=== PATIENT | female | born 1950 | race African-American/Black ===

== ENCOUNTER 2021-10-14 05:55 | Inpatient (IN) | payer MEDICARE, MEDICAID ==
[~2021-10-14] VITALS: Ht 157.5 cm; Wt 54.0 kg
[~2021-10-14 05:55] MED LIST: CLON0.2T PO; CLON2TAB PO; VICODIN
[2021-10-14] MEDS ORDERED: ACETAMINOPHEN 325MG TABLET PO STA (06:32)
[2021-10-14] MEDS ORDERED: CEFTRIAXONE 1 G PREMIX 50 ML IV ONE (07:15)
[2021-10-14 07:24] LABS: BASOPHILS % 0.3 % (0.0-2.0); EOSINOPHILS % 0.5 % (0.0-5.0); HEMOGLOBIN. 9.1 g/dL (12.0-16.0); LYMPHOCYTES % 15.2 % (20.0-50.0); MEAN CORPUSCULAR HEMOGLOBIN 20.7 pg (28.0-32.0); MEAN CORPUSCULAR VOLUME 65.5 fL (81.0-99.0); MEAN PLATELET VOLUME 6.5 fl (7.4-10.4); PLATELET 364 x1000/uL (130-400); RED BLOOD CELL COUNT 4.42 mill/uL (4.2-5.4); RED CELL DISTRIBUTION WIDTH 23.9 % (11.6-14.6)
[2021-10-14 07:32] LABS: CHLORIDE 100 mEq/L (98-107)
[2021-10-14 07:48] LABS: PLATELET ESTIMATE NORMAL
[2021-10-14] MEDS: VANCOMYCIN 1G PREMIX 200 ML IV SCH (08:21)
[2021-10-14] MEDS ORDERED: METRONIDAZOLE 500 MG PREMIX 100 ML IV SCH (09:00)
[2021-10-14] MEDS ORDERED: POLYETHYLENE GLYCOL 3350 (17GM) 1 DOSE PACK PO SCH (09:00)
[2021-10-14 10:01] LABS: CLARITY URINE CLEAR (CLEAR); COLOR URINE YELLOW (YELLOW); KETONES URINE NEGATIVE (NEGATIVE); LEUKOCYTE ESTERASE URINE 3+ (NEGATIVE); NITRITE URINE NEGATIVE (NEGATIVE); OCCULT BLOOD URINE 1+ (NEGATIVE); PH URINE 8.5 (4.5-8.0); PROTEIN URINE TRACE (NEGATIVE); SPECIFIC GRAVITY URINE 1.012 (1.005-1.030)
[2021-10-14] MEDS ORDERED: SODIUM CHLORIDE 0.9% 1,000 ML IV ONE ×2 (11:30→13:45)
[2021-10-14] MEDS ORDERED: SODIUM CHLORIDE 0.9% 1,000 ML IV SCH (11:30)
[2021-10-14] MEDS ORDERED: LEVOFLOXACIN 500MG PREMIX 100 ML IV SCH (15:00)
[2021-10-14 16:20] VITALS: BP 150/52
[2021-10-14] MEDS: ACETAMINOPHEN 325MG TABLET PO PRN ×2 (17:59→22:21)
[2021-10-14] MEDS ORDERED: LACTULOSE 20G/30ML UDC PO NR (18:30)
[2021-10-14 20:00] VITALS: BP 162/62
[2021-10-14] MEDS: ONDANSETRON HCL 4MG/2ML INJ IV PRN (20:03)
[2021-10-14] MEDS: METRONIDAZOLE 500MG TABLET PO SCH (20:59)
[2021-10-14] MEDS: DOCUSATE SODIUM 250MG CAPSULE PO SCH (21:20)
[2021-10-15 01:00] VITALS: BP 179/69
[2021-10-15] MEDS: ONDANSETRON HCL 4MG/2ML INJ IV PRN ×2 (02:07→07:15)
[2021-10-15] MEDS: CLONIDINE 0.1MG TABLET PO PRN ×2 (02:08→07:16)
[2021-10-15 04:00] VITALS: BP 179/63
[2021-10-15] MEDS: ACETAMINOPHEN 325MG TABLET PO PRN (07:15)
[2021-10-15] MEDS: VANCOMYCIN 1G PREMIX 200 ML IV SCH (07:15)
[2021-10-15 08:00] VITALS: BP 166/56
[2021-10-15] MEDS: DOCUSATE SODIUM 250MG CAPSULE PO SCH (09:19)
[2021-10-15] MEDS: METRONIDAZOLE 500MG TABLET PO SCH (09:19)
[2021-10-15 12:00] VITALS: BP 117/60
[2021-10-15] MEDS ORDERED: SORBITOL 70% SOLN 30ML PO SCH (15:00)
[2021-10-15] MEDS: BISACODYL 10MG SUPP PR SCH (15:00)
[2021-10-15 16:00] VITALS: BP 166/54
[2021-10-15 16:35] LABS: BASOPHILS % 0.2 % (0.0-2.0); EOSINOPHILS % 0.4 % (0.0-5.0); HEMATOCRIT. 31.8 % (36.0-48.0); HEMOGLOBIN. 10.3 g/dL (12.0-16.0); LYMPHOCYTES % 12.9 % (20.0-50.0); MEAN CORPUSCULAR HEMOGLOBIN 21.1 pg (28.0-32.0); MEAN CORPUSCULAR VOLUME 65.3 fL (81.0-99.0); MEAN PLATELET VOLUME 6.7 fl (7.4-10.4); MONOCYTES % 7.6 % (2.0-8.0); NEUTROPHILS % 78.9 % (40.0-76.0); PLATELET 445 x1000/uL (130-400); RED BLOOD CELL COUNT 4.87 mill/uL (4.2-5.4); RED CELL DISTRIBUTION WIDTH 24.8 % (11.6-14.6)
[2021-10-15 16:58] LABS: CHLORIDE 100 mEq/L (98-107)
[2021-10-15 17:07] LABS: TOTAL IRON BINDING CAPACITY 213 ug/dL (250-450)
[2021-10-15 17:15] LABS: FERRITIN 75 ng/mL (10-291)
[2021-10-15 17:26] LABS: HEPATITIS B SURFACE ANTIGEN NEGATIVE
[2021-10-15 17:31] LABS: VITAMIN B12 SERUM 1302 pg/mL (211-911)
[2021-10-15] MEDS: METOCLOPRAMIDE HCL 10MG/2ML VIAL IV SCH (18:00)
[2021-10-15 20:00] VITALS: BP 162/60
[2021-10-15] MEDS: PANTOPRAZOLE SODIUM 40 MG/VIAL IV SCH (21:38)
[2021-10-16] VITALS: BP 175/52
[2021-10-16 04:00] VITALS: BP 155/52
[2021-10-16] MEDS: METOCLOPRAMIDE HCL 10MG/2ML VIAL IV SCH ×4 (07:17→23:59)
[2021-10-16 08:00] VITALS: BP 139/40
[2021-10-16] MEDS: DOCUSATE SODIUM 250MG CAPSULE PO SCH (09:00)
[2021-10-16] MEDS: BISACODYL 10MG SUPP PR SCH (09:00)
[2021-10-16 09:31] LABS: BASOPHILS % 0.4 % (0.0-2.0); EOSINOPHILS % 0.3 % (0.0-5.0); HEMATOCRIT. 31.3 % (36.0-48.0); LYMPHOCYTES % 13.1 % (20.0-50.0); MEAN CORPUSCULAR HEMOGLOBIN 20.8 pg (28.0-32.0); MEAN CORPUSCULAR VOLUME 65.1 fL (81.0-99.0); MEAN PLATELET VOLUME 6.6 fl (7.4-10.4); MONOCYTES % 6.1 % (2.0-8.0); NEUTROPHILS % 80.1 % (40.0-76.0); PLATELET 540 x1000/uL (130-400); RED BLOOD CELL COUNT 4.81 mill/uL (4.2-5.4); RED CELL DISTRIBUTION WIDTH 24.7 % (11.6-14.6)
[2021-10-16 09:46] LABS: CHLORIDE 100 mEq/L (98-107)
[2021-10-16 12:00] VITALS: BP 146/40
[2021-10-16] MEDS: ACETAMINOPHEN 325MG TABLET PO PRN (12:00)
[2021-10-16] MEDS: PANTOPRAZOLE SODIUM 40 MG/VIAL IV SCH ×2 (12:01→21:56)
[2021-10-16 16:00] VITALS: BP 157/62
[2021-10-16] MEDS: LEVOFLOXACIN 500MG PREMIX 100 ML IV SCH (18:03)
[2021-10-16 20:00] VITALS: BP 152/68
[2021-10-17] VITALS: BP 149/54
[2021-10-17] MEDS: ACETAMINOPHEN 325MG TABLET PO PRN ×2 (00:28→09:20)
[2021-10-17 04:00] VITALS: BP 155/55
[2021-10-17] MEDS: METOCLOPRAMIDE HCL 10MG/2ML VIAL IV SCH ×4 (05:13→23:45)
[2021-10-17] MEDS ORDERED: LIDOCAINE HCL 1% 10 MG/ML 10ML VIAL INJ NR (06:00)
[2021-10-17] MEDS ORDERED: NALOXONE HCL 0.4MG/ML VIAL IV PRN (07:45)
[2021-10-17 08:00] VITALS: BP 158/53
[2021-10-17] MEDS: PANTOPRAZOLE SODIUM 40 MG/VIAL IV SCH ×2 (09:19→20:16)
[2021-10-17] MEDS: DOCUSATE SODIUM 250MG CAPSULE PO SCH (09:19)
[2021-10-17] MEDS: BISACODYL 10MG SUPP PR SCH (09:20)
[2021-10-17 12:00] VITALS: BP 148/50
[2021-10-17] MEDS ORDERED: BISACODYL 10MG SUPP PR NR (13:45)
[2021-10-17] MEDS: HYDROCODONE/ACETAMINOPHEN 5/325MG TABLET PO PRN ×2 (14:15→23:03)
[2021-10-17 16:00] VITALS: BP 148/49
[2021-10-17] MEDS ORDERED: MORPHINE SULFATE 2 MG/ML CPJ (NOT FOR IM USE) IV NR (16:00)
[2021-10-17] MEDS: LEVOFLOXACIN 500MG PREMIX 100 ML IV SCH (18:46)
[2021-10-17 20:00] VITALS: BP 158/55
[2021-10-18] VITALS: BP 151/51
[2021-10-18 04:00] VITALS: BP 131/83
[2021-10-18] MEDS: ACETAMINOPHEN 325MG TABLET PO PRN ×2 (04:25→19:08)
[2021-10-18] MEDS: METOCLOPRAMIDE HCL 10MG/2ML VIAL IV SCH ×3 (05:49→17:49)
[2021-10-18 06:52] LABS: BASOPHILS % 0.5 % (0.0-2.0); EOSINOPHILS % 1.3 % (0.0-5.0); HEMATOCRIT. 29.7 % (36.0-48.0); HEMOGLOBIN. 9.6 g/dL (12.0-16.0); LYMPHOCYTES % 18.3 % (20.0-50.0); MEAN CORPUSCULAR HEMOGLOBIN 21.3 pg (28.0-32.0); MEAN CORPUSCULAR VOLUME 66.1 fL (81.0-99.0); MEAN PLATELET VOLUME 8.3 fl (7.4-10.4); MONOCYTES % 9.8 % (2.0-8.0); NEUTROPHILS % 70.1 % (40.0-76.0); PLATELET 459 x1000/uL (130-400); RED CELL DISTRIBUTION WIDTH 24.8 % (11.6-14.6)
[2021-10-18 08:00] VITALS: BP 145/60
[2021-10-18] MEDS: DOCUSATE SODIUM 250MG CAPSULE PO SCH (08:31)
[2021-10-18] MEDS: PANTOPRAZOLE SODIUM 40 MG/VIAL IV SCH ×2 (08:31→20:21)
[2021-10-18] MEDS: BISACODYL 10MG SUPP PR SCH (08:32)
[2021-10-18 09:26] LABS: CHLORIDE 103 mEq/L (98-107)
[2021-10-18 12:00] VITALS: BP_SYST 135; BP_SYST 139; BP_DIAS 62; BP_DIAS 75
[2021-10-18] MEDS: LEVOFLOXACIN 250MG TABLET PO SCH (15:20)
[2021-10-18 16:00] VITALS: BP 119/67
[2021-10-18] MEDS: HYDROCODONE/ACETAMINOPHEN 5/325MG TABLET PO PRN (16:24)
[2021-10-18] MEDS ORDERED: METOCLOPRAMIDE 10MG/10 ML UDC PO PRN (19:15)
[2021-10-18 20:00] VITALS: BP 154/54
[2021-10-19] VITALS: BP 156/54
[2021-10-19 04:00] VITALS: BP 171/54
[2021-10-19] MEDS: HYDROCODONE/ACETAMINOPHEN 5/325MG TABLET PO PRN ×3 (06:28→19:44)
[2021-10-19 08:00] VITALS: BP 142/61
[2021-10-19 08:09] LABS: BASOPHILS % 0.4 % (0.0-2.0); EOSINOPHILS % 1.5 % (0.0-5.0); HEMATOCRIT. 32.4 % (36.0-48.0); HEMOGLOBIN. 10.2 g/dL (12.0-16.0); LYMPHOCYTES % 22.8 % (20.0-50.0); MEAN CORPUSCULAR HEMOGLOBIN 21.5 pg (28.0-32.0); MEAN CORPUSCULAR VOLUME 68.1 fL (81.0-99.0); MEAN PLATELET VOLUME 6.6 fl (7.4-10.4); MONOCYTES % 7.1 % (2.0-8.0); NEUTROPHILS % 68.2 % (40.0-76.0); PLATELET 510 x1000/uL (130-400); RED BLOOD CELL COUNT 4.75 mill/uL (4.2-5.4); RED CELL DISTRIBUTION WIDTH 25.8 % (11.6-14.6)
[2021-10-19] MEDS: BISACODYL 10MG SUPP PR SCH (08:09)
[2021-10-19] MEDS: DOCUSATE SODIUM 250MG CAPSULE PO SCH (08:09)
[2021-10-19] MEDS: PANTOPRAZOLE SODIUM 40 MG/VIAL IV SCH ×2 (08:10→20:23)
[2021-10-19 08:31] LABS: CHLORIDE 102 mEq/L (98-107)
[2021-10-19] MEDS: AMLODIPINE 5MG TABLET PO SCH (10:34)
[2021-10-19] MEDS: LEVOFLOXACIN 250MG TABLET PO SCH (10:34)
[2021-10-19 12:00] VITALS: BP 152/56
[2021-10-19 16:00] VITALS: BP 145/56
[2021-10-19 20:00] VITALS: BP 149/51
[2021-10-20] VITALS: BP 149/51
[2021-10-20 04:00] VITALS: BP 159/55
[2021-10-20 08:00] VITALS: BP 135/75
[2021-10-20] MEDS: BISACODYL 10MG SUPP PR SCH (09:00)
[2021-10-20] MEDS: PANTOPRAZOLE SODIUM 40 MG/VIAL IV SCH ×2 (09:46→20:20)
[2021-10-20] MEDS: DOCUSATE SODIUM 250MG CAPSULE PO SCH (09:46)
[2021-10-20] MEDS: AMLODIPINE 5MG TABLET PO SCH (09:48)
[2021-10-20] MEDS: LEVOFLOXACIN 250MG TABLET PO SCH (11:23)
[2021-10-20 12:00] VITALS: BP 137/62
[2021-10-20 16:00] VITALS: BP 118/59
[2021-10-20 16:10] LABS: BASOPHILS % 0.4 % (0.0-2.0); EOSINOPHILS % 1.8 % (0.0-5.0); HEMATOCRIT. 29.4 % (36.0-48.0); HEMOGLOBIN. 9.5 g/dL (12.0-16.0); LYMPHOCYTES % 17.6 % (20.0-50.0); MEAN CORPUSCULAR HEMOGLOBIN 21.6 pg (28.0-32.0); MEAN CORPUSCULAR VOLUME 66.6 fL (81.0-99.0); MEAN PLATELET VOLUME 6.4 fl (7.4-10.4); MONOCYTES % 9.7 % (2.0-8.0); NEUTROPHILS % 70.5 % (40.0-76.0); PLATELET 451 x1000/uL (130-400); RED BLOOD CELL COUNT 4.41 mill/uL (4.2-5.4); RED CELL DISTRIBUTION WIDTH 26.1 % (11.6-14.6)
[2021-10-20 16:18] LABS: CHLORIDE 100 mEq/L (98-107)
[2021-10-20] MEDS: ACETAMINOPHEN 325MG TABLET PO PRN (19:04)
[2021-10-20 20:00] VITALS: BP 156/63
[2021-10-20] MEDS: HYDROCODONE/ACETAMINOPHEN 5/325MG TABLET PO PRN (21:00)
[2021-10-21] VITALS (7 sets, daily range): BP systolic 127–151; BP diastolic 43–59
[2021-10-21] MEDS: ACETAMINOPHEN 325MG TABLET PO PRN ×3 (01:10→14:40)
[2021-10-21] MEDS: PANTOPRAZOLE SODIUM 40 MG/VIAL IV SCH ×2 (08:49→20:33)
[2021-10-21] MEDS: AMLODIPINE 5MG TABLET PO SCH (08:51)
[2021-10-21] MEDS: DOCUSATE SODIUM 250MG CAPSULE PO SCH (09:00)
[2021-10-21] MEDS: BISACODYL 10MG SUPP PR SCH (09:00)
[2021-10-21] MEDS: HYDROCODONE/ACETAMINOPHEN 5/325MG TABLET PO PRN (20:40)
[2021-10-22] VITALS: BP 136/55
[2021-10-22] MEDS: HYDROCODONE/ACETAMINOPHEN 5/325MG TABLET PO PRN (02:06)
[2021-10-22 04:00] VITALS: BP 137/55
[2021-10-22 08:00] VITALS: BP 139/52
[2021-10-22] MEDS: BISACODYL 10MG SUPP PR SCH (09:00)
[2021-10-22] MEDS: AMLODIPINE 5MG TABLET PO SCH (09:58)
[2021-10-22] MEDS: ACETAMINOPHEN 325MG TABLET PO PRN (09:58)
[2021-10-22] MEDS: DOCUSATE SODIUM 250MG CAPSULE PO SCH (09:58)
[2021-10-22] MEDS: PANTOPRAZOLE SODIUM 40 MG/VIAL IV SCH ×2 (10:00→21:50)
[2021-10-22 12:00] VITALS: BP 131/73
[2021-10-22 16:00] VITALS: BP 130/55
[2021-10-22 20:00] VITALS: BP 140/53
[2021-10-23] VITALS: BP 106/52
[2021-10-23 04:00] VITALS: BP 138/46
[2021-10-23 08:00] VITALS: BP 140/47
[2021-10-23] MEDS: DOCUSATE SODIUM 250MG CAPSULE PO SCH (08:43)
[2021-10-23] MEDS: BISACODYL 10MG SUPP PR SCH (08:43)
[2021-10-23] MEDS: AMLODIPINE 5MG TABLET PO SCH (08:43)
[2021-10-23] MEDS: PANTOPRAZOLE SODIUM 40 MG/VIAL IV SCH ×2 (08:43→21:07)
[2021-10-23 12:00] VITALS: BP 144/36
[2021-10-23] MEDS: ACETAMINOPHEN 325MG TABLET PO PRN (14:19)
[2021-10-23 16:00] VITALS: BP 127/54
[2021-10-23 20:00] VITALS: BP 146/54
[2021-10-24] VITALS: BP 127/41
[2021-10-24] MEDS: ACETAMINOPHEN 325MG TABLET PO PRN ×3 (01:02→22:48)
[2021-10-24 04:00] VITALS: BP 131/38
[2021-10-24 08:00] VITALS: BP 130/37
[2021-10-24] MEDS: PANTOPRAZOLE SODIUM 40 MG/VIAL IV SCH ×2 (08:46→21:00)
[2021-10-24] MEDS: BISACODYL 10MG SUPP PR SCH (08:46)
[2021-10-24] MEDS: DOCUSATE SODIUM 250MG CAPSULE PO SCH (08:46)
[2021-10-24] MEDS: AMLODIPINE 5MG TABLET PO SCH (08:54)
[2021-10-24 12:00] VITALS: BP 111/32
[2021-10-24 16:00] VITALS: BP 144/54
[2021-10-24 20:00] VITALS: BP 124/55
[2021-10-25] VITALS: BP 122/52
[2021-10-25 04:00] VITALS: BP 128/54
[2021-10-25 08:00] VITALS: BP 130/50
[2021-10-25] MEDS: ACETAMINOPHEN 325MG TABLET PO PRN ×3 (09:25→23:29)
[2021-10-25] MEDS: BISACODYL 10MG SUPP PR SCH ×2 (09:26→09:35)
[2021-10-25] MEDS: AMLODIPINE 5MG TABLET PO SCH (09:26)
[2021-10-25] MEDS: DOCUSATE SODIUM 250MG CAPSULE PO SCH (09:26)
[2021-10-25] MEDS: PANTOPRAZOLE SODIUM 40 MG/VIAL IV SCH ×2 (09:26→21:00)
[2021-10-25 12:00] VITALS: BP 126/52
[2021-10-25 16:00] VITALS: BP 118/51
[2021-10-25 20:00] VITALS: BP 122/46
[2021-10-26] VITALS: BP 120/52
[2021-10-26 04:00] VITALS: BP 128/60
[2021-10-26 08:00] VITALS: BP 120/50
[2021-10-26 09:14] LABS: BASOPHILS % 0.3 % (0.0-2.0); EOSINOPHILS % 1.8 % (0.0-5.0); HEMATOCRIT. 32.6 % (36.0-48.0); HEMOGLOBIN. 10.4 g/dL (12.0-16.0); LYMPHOCYTES % 17.4 % (20.0-50.0); MEAN CORPUSCULAR HEMOGLOBIN 21.8 pg (28.0-32.0); MEAN PLATELET VOLUME 6.5 fl (7.4-10.4); MONOCYTES % 8.7 % (2.0-8.0); NEUTROPHILS % 71.8 % (40.0-76.0); PLATELET 591 x1000/uL (130-400); RED BLOOD CELL COUNT 4.79 mill/uL (4.2-5.4); RED CELL DISTRIBUTION WIDTH 24.5 % (11.6-14.6)
[2021-10-26] MEDS: DOCUSATE SODIUM 250MG CAPSULE PO SCH (09:19)
[2021-10-26] MEDS: PANTOPRAZOLE SODIUM 40 MG/VIAL IV SCH ×2 (09:19→21:53)
[2021-10-26] MEDS: AMLODIPINE 5MG TABLET PO SCH (09:19)
[2021-10-26 09:34] LABS: CHLORIDE 95 mEq/L (98-107)
[2021-10-26 12:00] VITALS: BP 121/44
[2021-10-26 12:11] LABS: PLATELET ESTIMATE INCREASED
[2021-10-26] MEDS: SODIUM CHLORIDE 0.9% 1,000 ML IV SCH (12:48)
[2021-10-26 16:00] VITALS: BP 121/40
[2021-10-26] MEDS: ACETAMINOPHEN 325MG TABLET PO PRN (16:51)
[2021-10-26 20:00] VITALS: BP 130/85
[2021-10-27] VITALS: BP 140/47
[2021-10-27 04:00] VITALS: BP 134/46
[2021-10-27] MEDS: SODIUM CHLORIDE 0.9% 1,000 ML IV SCH (06:45)
[2021-10-27 08:00] VITALS: BP 126/44
[2021-10-27 08:04] LABS: CHLORIDE 100 mEq/L (98-107)
[2021-10-27] MEDS: AMLODIPINE 5MG TABLET PO SCH (08:22)
[2021-10-27] MEDS: PANTOPRAZOLE SODIUM 40 MG/VIAL IV SCH ×2 (08:22→22:05)
[2021-10-27] MEDS: DOCUSATE SODIUM 250MG CAPSULE PO SCH (08:22)
[2021-10-27] MEDS: BISACODYL 10MG SUPP PR SCH (08:22)
[2021-10-27 12:00] VITALS: BP 130/61
[2021-10-27] MEDS: ACETAMINOPHEN 325MG TABLET PO PRN ×3 (14:35→22:40)
[2021-10-27 16:00] VITALS: BP 125/50
[2021-10-27 20:00] VITALS: BP_SYST 114; BP_SYST 132; BP_DIAS 54; BP_DIAS 61
[2021-10-28] VITALS: BP 132/47
[2021-10-28 04:00] VITALS: BP 113/47
[2021-10-28] MEDS: SODIUM CHLORIDE 0.9% 1,000 ML IV SCH ×2 (07:03→15:49)
[2021-10-28 08:00] VITALS: BP 130/41
[2021-10-28] MEDS: AMLODIPINE 5MG TABLET PO SCH (09:00)
[2021-10-28] MEDS: PANTOPRAZOLE SODIUM 40 MG/VIAL IV SCH ×2 (11:10→21:00)
[2021-10-28] MEDS: BISACODYL 10MG SUPP PR SCH (11:46)
[2021-10-28] MEDS: DOCUSATE SODIUM 250MG CAPSULE PO SCH (11:46)
[2021-10-28 12:00] VITALS: BP 133/49
[2021-10-28 16:00] VITALS: BP 148/86
[2021-10-28 20:34] LABS: BASOPHILS % 0.7 % (0.0-2.0); EOSINOPHILS % 1.2 % (0.0-5.0); HEMATOCRIT. 30.5 % (36.0-48.0); HEMOGLOBIN. 9.4 g/dL (12.0-16.0); LYMPHOCYTES % 19.4 % (20.0-50.0); MEAN CORPUSCULAR HEMOGLOBIN 21.8 pg (28.0-32.0); MEAN CORPUSCULAR VOLUME 70.7 fL (81.0-99.0); MEAN PLATELET VOLUME 6.7 fl (7.4-10.4); MONOCYTES % 7.9 % (2.0-8.0); NEUTROPHILS % 70.8 % (40.0-76.0); PLATELET 488 x1000/uL (130-400); RED BLOOD CELL COUNT 4.31 mill/uL (4.2-5.4)
[2021-10-28 20:45] LABS: INR 1.1; PROTHROMBIN TIME 11.9 sec (9.6-11.0)
[2021-10-28 20:52] LABS: CHLORIDE 104 mEq/L (98-107)
[2021-10-28] MEDS ORDERED: FENTANYL CITRATE/PF 50MCG/ML 2ML VIAL ONE (21:11)
[2021-10-28] MEDS ORDERED: PROPOFOL 200MG/20ML VIAL IV ONE (21:12)
[2021-10-28] MEDS ORDERED: POLYMYXIN B SULFATE 500000 UNITS/VIAL ONE (21:14)
[2021-10-28] MEDS ORDERED: MIDAZOLAM HCL 2 MG/2 ML VIAL ONE (21:20)
[2021-10-28] MEDS ORDERED: HYDROMORPHONE HCL/PF 2MG/ML CPJ IV PRN (21:30)
[2021-10-28] MEDS ORDERED: ONDANSETRON HCL 4MG/2ML INJ IV PRN (21:30)
[2021-10-28] MEDS ORDERED: MEPERIDINE HCL/PF 25MG/ML CPJ IV PRN (21:30)
[2021-10-28] MEDS ORDERED: LABETALOL 5MG/ML SYR 20 MG/4 ML SYRINGE IV PRN (21:30)
[2021-10-29] VITALS (7 sets, daily range): BP systolic 111–130; BP diastolic 42–59
[2021-10-29] MEDS: SODIUM CHLORIDE 0.9% 1,000 ML IV SCH ×2 (05:09→18:29)
[2021-10-29] MEDS: PANTOPRAZOLE SODIUM 40 MG/VIAL IV SCH ×2 (09:00→21:00)
[2021-10-29] MEDS: AMLODIPINE 5MG TABLET PO SCH (09:40)
[2021-10-29] MEDS: DOCUSATE SODIUM 250MG CAPSULE PO SCH (09:40)
[2021-10-29] MEDS: BISACODYL 10MG SUPP PR SCH (09:41)
[2021-10-29 11:42] LABS: BASOPHILS % 0.2 % (0.0-2.0); EOSINOPHILS % 0.1 % (0.0-5.0); HEMOGLOBIN. 9.5 g/dL (12.0-16.0); LYMPHOCYTES % 21.3 % (20.0-50.0); MEAN CORPUSCULAR VOLUME 69.3 fL (81.0-99.0); MEAN PLATELET VOLUME 6.6 fl (7.4-10.4); MONOCYTES % 5.4 % (2.0-8.0); PLATELET 569 x1000/uL (130-400); RED BLOOD CELL COUNT 4.33 mill/uL (4.2-5.4); RED CELL DISTRIBUTION WIDTH 24.2 % (11.6-14.6)
[2021-10-29 12:20] LABS: CHLORIDE 104 mEq/L (98-107)
[2021-10-29] MEDS: HYDROCODONE/ACETAMINOPHEN 5/325MG TABLET PO PRN (15:59)
[2021-10-29] MEDS ORDERED: PANT40TA51 MT (19:44)
[2021-10-29] MEDS ORDERED: AMLO5TAB88 PO (19:44)
[2021-10-30] VITALS (7 sets, daily range): BP systolic 125–136; BP diastolic 40–47
[2021-10-30] MEDS: HYDROCODONE/ACETAMINOPHEN 5/325MG TABLET PO PRN ×2 (00:29→05:55)
[2021-10-30] MEDS: SODIUM CHLORIDE 0.9% 1,000 ML IV SCH (07:49)
[2021-10-30] MEDS: PANTOPRAZOLE SODIUM 40 MG/VIAL IV SCH (09:00)
[2021-10-30] MEDS: BISACODYL 10MG SUPP PR SCH (09:00)
[2021-10-30] MEDS: DOCUSATE SODIUM 250MG CAPSULE PO SCH (09:44)
[2021-10-30] MEDS: AMLODIPINE 5MG TABLET PO SCH (09:45)
[2021-10-30 12:50] LABS: BASOPHILS % 1.1 % (0.0-2.0); EOSINOPHILS % 3.5 % (0.0-5.0); HEMATOCRIT. 29.9 % (36.0-48.0); HEMOGLOBIN. 9.3 g/dL (12.0-16.0); LYMPHOCYTES % 29.4 % (20.0-50.0); MEAN CORPUSCULAR HEMOGLOBIN 21.6 pg (28.0-32.0); MEAN CORPUSCULAR VOLUME 69.6 fL (81.0-99.0); MEAN PLATELET VOLUME 6.4 fl (7.4-10.4); MONOCYTES % 9.6 % (2.0-8.0); NEUTROPHILS % 56.4 % (40.0-76.0); PLATELET 572 x1000/uL (130-400); RED BLOOD CELL COUNT 4.29 mill/uL (4.2-5.4); RED CELL DISTRIBUTION WIDTH 24.4 % (11.6-14.6)
[2021-10-30 12:59] LABS: CHLORIDE 108 mEq/L (98-107)
== END 2021-10-30 16:51 | disposition hospice, home (50) | DRG 364 ==
LOC: ER 06:13 → 6EST 12:51 → EDBEDREQ 12:56 → 6EST 10-17 04:14 → MICUSO 10-28 03:45 → 6EST 10-28 03:47
PROVIDERS: ADMIT Internal Medicine; ATTEND Internal Medicine
PROC: 0J980ZZ Drainage of Abdomen Subcutaneous Tissue and Fascia, Open Approach (ICD-10-PCS; principal; 2021-10-17)
PROC: 0JBL0ZZ Excision of Right Upper Leg Subcutaneous Tissue and Fascia, Open Approach (ICD-10-PCS; 2021-10-28)
PROC: 0JBM0ZZ Excision of Left Upper Leg Subcutaneous Tissue and Fascia, Open Approach (ICD-10-PCS; 2021-10-28)
DX: L02.211 Cutaneous abscess of abdominal wall (principal); E43 Unspecified severe protein-calorie malnutrition; R18.8 Other ascites; E87.1 Hypo-osmolality and hyponatremia; R16.2 Hepatomegaly with splenomegaly, not elsewhere classified; K52.9 Noninfective gastroenteritis and colitis, unspecified; L02.415 Cutaneous abscess of right lower limb; L02.416 Cutaneous abscess of left lower limb; K76.0 Fatty (change of) liver, not elsewhere classified; A59.9 Trichomoniasis, unspecified; D64.9 Anemia, unspecified; B19.20 Unspecified viral hepatitis C without hepatic coma; F11.90 Opioid use, unspecified, uncomplicated; N39.0 Urinary tract infection, site not specified; K56.41 Fecal impaction; B35.1 Tinea unguium; D50.9 Iron deficiency anemia, unspecified; R22.2 Localized swelling, mass and lump, trunk; I10 Essential (primary) hypertension; N20.0 Calculus of kidney; Z20.822 Contact with and (suspected) exposure to COVID-19; Z90.49 Acquired absence of other specified parts of digestive tract; Z88.0 Allergy status to penicillin; Z79.899 Other long term (current) drug therapy; Z95.0 Presence of cardiac pacemaker; Z71.51 Drug abuse counseling and surveillance of drug abuser
CPT/HCPCS: 36415; 73070; 74018; 74176; 76700; 80048; 80053; 81003; 82607; 82728; 82746; 83540; 83550; 83605; 84145; 84295; 85025; 85044; 86705; 86709; 86803; 87070; 87075; 87077; 87186; 87340; 87426; 88304; 93005; 93976; 97110; 97162; 97166; 97530; 97535; 99285; C1893; C9113; J0696; J1170; J1956; J2250; J2270; J2405; J2704; J2765; J3010; J3370; J3490; J7030; J7040

== ENCOUNTER 2024-03-04 08:59 | Inpatient (IN) | payer MEDICARE, MEDICAID ==
[~2024-03-04] VITALS: Ht 162.6 cm; Wt 79.0 kg
[2024-03-04] VITALS (21 sets, daily range): BP systolic 103–155; BP diastolic 42–58; PULSE 81–107; RESP 17–32; TEMP 36.55848–37.0852; O2SAT 87–100
[~2024-03-04 08:59] MED LIST changes: +AMLO5TAB88 PO; -CLON0.2T PO; -CLON2TAB PO; +LEVO-65 MT; +PANT40TA51 MT
[2024-03-04] MEDS: SODIUM CHLORIDE 0.9% 1,000 ML IV ONE (09:22)
[2024-03-04] MEDS: SODIUM CHLORIDE 0.9% 1000ML BAG (SEPSIS BOLUS) IV ONE (09:28)
[2024-03-04] MEDS: MEROPENEM 1G/100ML 100 ML IV ONE (09:28)
[2024-03-04 09:40] LABS: HEMATOCRIT. 39.7 % (36.0-48.0); HEMOGLOBIN. 12.8 g/dL (12.0-16.0); MEAN CORPUSCULAR HEMOGLOBIN 27.5 pg (28.0-32.0); MEAN CORPUSCULAR HGB CONC 32.2 g/dL (31.0-37.0); MEAN CORPUSCULAR VOLUME 85.3 fL (81.0-99.0); MEAN PLATELET VOLUME 9.4 fl (7.4-10.4); PLATELET 213 x1000/uL (130-400); RED BLOOD CELL COUNT 4.65 mill/uL (4.2-5.4); RED CELL DISTRIBUTION WIDTH 16.1 % (11.6-14.6); WHITE BLOOD COUNT 13.7 x1000/uL (4.5-11.0)
[2024-03-04 09:50] LABS: DIFFERENTIAL COMMENT 1
[2024-03-04 09:56] LABS: POTASSIUM 4.9 mEq/L (3.5-5.1)
[2024-03-04] MEDS: VANCOMYCIN 1G PREMIX 200 ML IV ONE (09:56)
[2024-03-04 09:58] LABS: CALCIUM 9.3 mg/dL (8.7-10.4)
[2024-03-04 09:59] LABS: LACTIC ACID 3.3 mmol/L (0.4-2.0)
[2024-03-04 10:02] LABS: CREATININE 1.2 mg/dL (0.6-1.0)
[2024-03-04 10:12] LABS: INR 1.1; PROTHROMBIN TIME 11.7 sec (9.6-11.0)
[2024-03-04] MEDS: ACETAMINOPHEN 650MG SUPP PR SCH (10:23)
[2024-03-04 10:50] LABS: ANISOCYTOSIS 1+; PLATELET ESTIMATE NORMAL
[2024-03-04 12:46] LABS: BG BASE EXCESS -2.4 mmol/L (-2.0-2.0); BG CARBOXYHEMOGLOBIN 0.8 % (0.5-1.5); BG FRACTION INSPIRED OXYGEN 21; BG HCO3 ACT 19.3 mmol/L (22.0-26.0); BG METHEMOGLOBIN 0.3 % (0.0-1.5); BG OXYGEN SATURATION 91.9 % (92.0-98.5); BG OXYHEMOGLOBIN 90.9 % (94.0-97.0); BG PCO2 25.5 mmHg (35.0-45.0); BG PH 7.497 (7.350-7.450); BG PO2 56.6 mmHg (75.0-100.0); BG SAMPLE SITE RIGHT RADIAL; BG TOTAL HEMOGLOBIN 12.8 g/dL (12.0-18.0); BG VENT MODE ROOM AIR
[2024-03-04] MEDS ORDERED: DOCUSATE SODIUM 100MG CAPSULE PO PRN (17:45)
[2024-03-04] MEDS ORDERED: MAGNESIUM/ALUMINUM HYDROXIDE/SIMETHICONE 30ML UDC PO PRN (17:45)
[2024-03-04] MEDS ORDERED: ACETAMINOPHEN 325MG TABLET PO PRN (17:45)
[2024-03-04] MEDS ORDERED: ONDANSETRON HCL 4MG/2ML INJ IV PRN (17:45)
[2024-03-04] MEDS ORDERED: NITROGLYCERIN 0.4MG TABLET SL SL PRN (17:45)
[2024-03-04] MEDS ORDERED: IPRATROPIUM/ALBUTEROL 0.5-3(2.5)MG/3ML NEB NEB PRN (17:45)
[2024-03-04] MEDS: NOREPINEPHRINE 8MG/250ML PMX 250 ML IV ONE (17:47)
[2024-03-04] MEDS ORDERED: KETOROLAC 15MG/ML VIAL IV PRN (18:00)
[2024-03-04] MEDS: LACTATED RINGERS 1,000 ML IV SCH (18:11)
[2024-03-04 18:20] LABS: IRON 64 ug/dL (50-170)
[2024-03-04 18:22] LABS: TOTAL IRON BINDING CAPACITY 255 ug/dl (250-425)
[2024-03-04 18:24] LABS: T4 FREE 1.04 ng/dL (0.89-1.76); VITAMIN B12 SERUM 1011 pg/mL (211-911)
[2024-03-04 18:25] LABS: FOLIC ACID (FOLATE) SERUM > 20.00 ng/mL (>5.38); THYROID STIMULATING HORMONE 2.45 uIU/mL (0.55-4.78)
[2024-03-04] MEDS: LACTATED RINGERS 1,600 ML IV NR (18:44)
[2024-03-04] MEDS ORDERED: ZOLPIDEM TARTRATE 5MG TABLET PO PRN (20:00)
[2024-03-04] MEDS: ASCORBIC ACID 500 MG TABLET PO SCH (21:00)
[2024-03-04] MEDS ORDERED: BLOOD SUGAR DIAGNOSTIC STRIP TEST SCH (21:00)
[2024-03-04 21:28] LABS: DIFFERENTIAL COMMENT 1; HEMATOCRIT. 31.6 % (36.0-48.0); MEAN CORPUSCULAR HEMOGLOBIN 27.8 pg (28.0-32.0); MEAN CORPUSCULAR HGB CONC 31.6 g/dL (31.0-37.0); MEAN PLATELET VOLUME 9.6 fl (7.4-10.4); PLATELET 81 x1000/uL (130-400); RED BLOOD CELL COUNT 3.59 mill/uL (4.2-5.4); RED CELL DISTRIBUTION WIDTH 16.7 % (11.6-14.6); WHITE BLOOD COUNT 16.9 x1000/uL (4.5-11.0)
[2024-03-04 21:33] LABS: POTASSIUM 4.4 mEq/L (3.5-5.1)
[2024-03-04 21:34] LABS: CALCIUM 8.1 mg/dL (8.7-10.4)
[2024-03-04 21:39] LABS: CREATININE 1.1 mg/dL (0.6-1.0)
[2024-03-04 21:41] LABS: LACTIC ACID 3.2 mmol/L (0.4-2.0)
[2024-03-04 22:20] LABS: CREATINE KINASE MB FRACTION 13.7 ng/mL (0.5-3.6)
[2024-03-04 22:21] LABS: CREATINE KINASE 1109 IU/L (34-145)
[2024-03-04 22:27] LABS: PLATELET ESTIMATE DECREASED
[2024-03-04 22:28] LABS: ANISOCYTOSIS 1+
[2024-03-04 22:31] LABS: TROPONIN I HIGH SENSITIVITY 741 ng/L (3.0-34)
[2024-03-04] MEDS: VANCOMYCIN 750MG PREMIX 150 ML IV SCH (22:39)
[2024-03-05] VITALS (86 sets, daily range): BP systolic 88–149; BP diastolic 25–126; PULSE 76–94; RESP 14–26; TEMP 36.33624–36.6696; O2SAT 94–100
[2024-03-05] MEDS: BLOOD SUGAR DIAGNOSTIC STRIP TEST SCH (00:16)
[2024-03-05] MEDS: MEROPENEM 1G/100ML 100 ML IV SCH (00:18)
[2024-03-05] MEDS: INSULIN LISPRO 100 UNITS/ML SUBCUT SCH (00:20)
[2024-03-05 05:50] LABS: BASOPHILS % 0.2 % (0.0-2.0); HEMATOCRIT. 34.3 % (36.0-48.0); HEMOGLOBIN. 10.7 g/dL (12.0-16.0); LYMPHOCYTES % 23.6 % (20.0-50.0); MEAN CORPUSCULAR HEMOGLOBIN 27.6 pg (28.0-32.0); MEAN CORPUSCULAR HGB CONC 31.1 g/dL (31.0-37.0); MEAN PLATELET VOLUME 9.9 fl (7.4-10.4); MONOCYTES % 10.9 % (2.0-8.0); NEUTROPHILS % 65.3 % (40.0-76.0); PLATELET 116 x1000/uL (130-400); RED BLOOD CELL COUNT 3.86 mill/uL (4.2-5.4); RED CELL DISTRIBUTION WIDTH 16.9 % (11.6-14.6); WHITE BLOOD COUNT 16.3 x1000/uL (4.5-11.0)
[2024-03-05 06:01] LABS: CHLORIDE 108 mEq/L (98-107); POTASSIUM 4.4 mEq/L (3.5-5.1); SODIUM 136 mEq/L (136-145)
[2024-03-05 06:03] LABS: CALCIUM 8.5 mg/dL (8.7-10.4); CARBON DIOXIDE 18 mEq/L (21-32)
[2024-03-05 06:05] LABS: CREATINE KINASE MB FRACTION 19.6 ng/mL (0.5-3.6)
[2024-03-05 06:08] LABS: CREATININE 0.9 mg/dL (0.6-1.0); GLUCOSE 134 mg/dL (70-105)
[2024-03-05 06:09] LABS: UREA NITROGEN BLOOD 33 mg/dL (9-23)
[2024-03-05 06:10] LABS: ALANINE AMINOTRANSFERASE 44 IU/L (10-49); ALBUMIN 3.3 g/dL (3.2-4.8); ASPARTATE AMINOTRANSFERASE 92 IU/L (<34)
[2024-03-05 06:11] LABS: BILIRUBIN TOTAL 0.5 mg/dL (0.1-1.0); PHOSPHORUS 3.9 mg/dL (2.5-4.9); PROTEIN TOTAL 6.8 g/dL (6.0-8.3)
[2024-03-05] MEDS ORDERED: LIDOCAINE HCL 1% 10 MG/ML 10ML VIAL ONE (08:10)
[2024-03-05] MEDS: ENOXAPARIN 40MG/0.4ML SYR SUBCUT SCH (09:00)
[2024-03-05] MEDS: PANTOPRAZOLE SODIUM 40 MG/VIAL IV SCH (09:12)
[2024-03-05] MEDS: ASPIRIN 81MG EC TABLET PO SCH (09:12)
[2024-03-05] MEDS: ZINC SULFATE 220 MG ( 50 ) CAPSULE PO SCH (09:12)
[2024-03-05] MEDS: NOREPINEPHRINE 8MG/250ML PMX 250 ML IV PRN (12:50)
[2024-03-05 16:45] LABS: CLARITY URINE CLEAR (CLEAR); COLOR URINE YELLOW (YELLOW); GLUCOSE URINE NEGATIVE (NEGATIVE); KETONES URINE TRACE (NEGATIVE); LEUKOCYTE ESTERASE URINE TRACE (NEGATIVE); NITRITE URINE NEGATIVE (NEGATIVE); OCCULT BLOOD URINE TRACE (NEGATIVE); PH URINE 6.5 (4.5-8.0); PROTEIN URINE 1+ (NEGATIVE); SPECIFIC GRAVITY URINE 1.021 (1.005-1.030)
[2024-03-05 16:58] LABS: BACTERIA URINE TRACE; SQUAMOUS EPITHELIAL CELL URINE FEW /lpf (RARE/1+)
[2024-03-05 16:59] LABS: *AMPHETAMINES SCREEN URINE NEGATIVE (NEGATIVE); *BARBITURATES SCREEN URINE NEGATIVE (NEGATIVE); *BENZODIAZEPINES SCREEN URINE NEGATIVE (NEGATIVE); *COCAINE SCREEN URINE NEGATIVE (NEGATIVE); METHADONE URINE SCREEN NEGATIVE (NEGATIVE)
[2024-03-05 17:00] LABS: CANNABINOID URINE SCREEN NEGATIVE (NEGATIVE); ECSTASY MDMA SCREEN URINE NEGATIVE (NEGATIVE); OPIATES URINE SCREEN NEGATIVE (NEGATIVE); PHENCYCLIDINE URINE SCREEN NEGATIVE (NEGATIVE)
[2024-03-05] MEDS: MEROPENEM 1G/100ML IV SCH (17:16)
[2024-03-05] MEDS: IPRATROPIUM/ALBUTEROL 0.5-3(2.5)MG/3ML NEB HHN SCH (20:35)
[2024-03-05] MEDS ORDERED: INSULIN LISPRO 100 UNITS/ML SUBCUT SCH (21:00)
[2024-03-05] MEDS: VANCOMYCIN 1G PREMIX 200 ML IV SCH (21:03)
[2024-03-05] MEDS ORDERED: IOHEXOL-300 100 ML BOTTLE ONE (23:51)
[2024-03-06] VITALS (50 sets, daily range): BP systolic 114–169; BP diastolic 50–144; PULSE 75–95; RESP 17–30; TEMP 36.50292–37.05852; O2SAT 86–100
[2024-03-06] MEDS: DEXTROSE 50% WATER 50ML SYRINGE IV PRN (00:12)
[2024-03-06] MEDS: ACETYLCYSTEINE 200MG/ML 20% VIAL 4ML INH SCH (01:42)
[2024-03-06 05:39] LABS: BASOPHILS % 0.3 % (0.0-2.0); EOSINOPHILS % 0.3 % (0.0-5.0); HEMOGLOBIN. 8.4 g/dL (12.0-16.0); MEAN CORPUSCULAR HEMOGLOBIN 27.8 pg (28.0-32.0); MEAN CORPUSCULAR HGB CONC 32.5 g/dL (31.0-37.0); MEAN CORPUSCULAR VOLUME 85.7 fL (81.0-99.0); MEAN PLATELET VOLUME 9.2 fl (7.4-10.4); MONOCYTES % 6.1 % (2.0-8.0); NEUTROPHILS % 72.3 % (40.0-76.0); PLATELET 100 x1000/uL (130-400); RED BLOOD CELL COUNT 3.03 mill/uL (4.2-5.4); RED CELL DISTRIBUTION WIDTH 16.2 % (11.6-14.6); WHITE BLOOD COUNT 8.3 x1000/uL (4.5-11.0)
[2024-03-06 05:45] LABS: CALCIUM 8.5 mg/dL (8.7-10.4); CARBON DIOXIDE 22 mEq/L (21-32); CHLORIDE 110 mEq/L (98-107); POTASSIUM 3.6 mEq/L (3.5-5.1); SODIUM 139 mEq/L (136-145)
[2024-03-06 05:51] LABS: CREATININE 0.6 mg/dL (0.6-1.0); GLUCOSE 87 mg/dL (70-105); TRIGLYCERIDE 77 mg/dL (0-150); UREA NITROGEN BLOOD 20 mg/dL (9-23)
[2024-03-06 05:52] LABS: LDL CHOLESTEROL 44 mg/dL (5-100)
[2024-03-06 05:53] LABS: CHOLESTEROL 79 mg/dL (<200); HDL CHOLESTEROL 22 mg/dL (>65)
[2024-03-06] MEDS: MEROPENEM 1G/100ML IV SCH (14:15)
[2024-03-06 18:06] LABS: HEMATOCRIT 26.6 % (36.0-48.0); HEMOGLOBIN 8.5 g/dL (12.0-16.0); MEAN CORPUSCULAR HEMOGLOBIN 27.3 pg (28.0-32.0); MEAN CORPUSCULAR HGB CONC 32.1 g/dL (31.0-37.0); PLATELET 107 x1000/uL (130-400); RED BLOOD CELL COUNT 3.13 mill/uL (4.2-5.4); RED CELL DISTRIBUTION WIDTH 16.6 % (11.6-14.6); WHITE BLOOD COUNT 9.4 x1000/uL (4.5-11.0)
[2024-03-06] MEDS: VANCOMYCIN 1.25GM PMX (XELLIA) 250 ML IV SCH (20:56)
[2024-03-06] MEDS: PANTOT AC/MIN OIL/PET HY-PHL OINT (AQUAPHOR) TOP SCH (21:00)
[2024-03-07] VITALS (59 sets, daily range): BP systolic 92–168; BP diastolic 33–133; PULSE 59–98; RESP 15–35; TEMP 36.55848–37.11408; O2SAT 92–100
[2024-03-07 06:18] LABS: BASOPHILS % 0.2 % (0.0-2.0); EOSINOPHILS % 0.7 % (0.0-5.0); HEMATOCRIT. 26.6 % (36.0-48.0); HEMOGLOBIN. 8.8 g/dL (12.0-16.0); LYMPHOCYTES % 16.7 % (20.0-50.0); MEAN CORPUSCULAR HEMOGLOBIN 28.1 pg (28.0-32.0); MEAN CORPUSCULAR HGB CONC 32.9 g/dL (31.0-37.0); MEAN CORPUSCULAR VOLUME 85.5 fL (81.0-99.0); MEAN PLATELET VOLUME 9.6 fl (7.4-10.4); MONOCYTES % 7.3 % (2.0-8.0); NEUTROPHILS % 75.1 % (40.0-76.0); PLATELET 141 x1000/uL (130-400); RED BLOOD CELL COUNT 3.11 mill/uL (4.2-5.4); RED CELL DISTRIBUTION WIDTH 15.8 % (11.6-14.6); WHITE BLOOD COUNT 9.3 x1000/uL (4.5-11.0)
[2024-03-07 06:19] LABS: CARBON DIOXIDE 22 mEq/L (21-32); CHLORIDE 109 mEq/L (98-107); POTASSIUM 3.5 mEq/L (3.5-5.1); SODIUM 138 mEq/L (136-145)
[2024-03-07 06:20] LABS: CALCIUM 8.8 mg/dL (8.7-10.4)
[2024-03-07 06:25] LABS: CREATININE 0.5 mg/dL (0.6-1.0); GLUCOSE 86 mg/dL (70-105); UREA NITROGEN BLOOD 11 mg/dL (9-23)
[2024-03-07 06:48] LABS: TROPONIN I HIGH SENSITIVITY 85 ng/L (3.0-34)
[2024-03-07] MEDS: DEXTROSE 5% WATER 1,000 ML IV SCH (08:46)
[2024-03-07] MEDS: GUAIFENESIN 600MG ER TABLET PO SCH (11:08)
[2024-03-07] MEDS: AMLODIPINE 5MG TABLET PO SCH (11:09)
[2024-03-07] MEDS: SODIUM CHLORIDE 3% FOR INH 4ML NEB INH NR (16:36)
[2024-03-07] MEDS: CLONIDINE 0.1MG TABLET PO PRN (16:36)
[2024-03-07] MEDS: CEFEPIME 2GM/100ML 100 ML IV SCH (20:41)
[2024-03-07] MEDS ORDERED: CEFEPIME 2GM IN DEXT 5% 100ML IV SCH (22:00)
[2024-03-08] VITALS (10 sets, daily range): BP systolic 113–146; BP diastolic 50–67; PULSE 57–81; RESP 16–22; TEMP 35.89176–37.16964; O2SAT 94–100
[2024-03-08 07:01] LABS: HEMATOCRIT 29.1 % (36.0-48.0); HEMOGLOBIN 9.5 g/dL (12.0-16.0); MEAN CORPUSCULAR HEMOGLOBIN 27.8 pg (28.0-32.0); MEAN CORPUSCULAR HGB CONC 32.5 g/dL (31.0-37.0); MEAN CORPUSCULAR VOLUME 85.6 fL (81.0-99.0); PLATELET 167 x1000/uL (130-400); RED BLOOD CELL COUNT 3.41 mill/uL (4.2-5.4); RED CELL DISTRIBUTION WIDTH 16.3 % (11.6-14.6); WHITE BLOOD COUNT 8.1 x1000/uL (4.5-11.0)
[2024-03-08 07:07] LABS: CARBON DIOXIDE 24 mEq/L (21-32); CHLORIDE 109 mEq/L (98-107); POTASSIUM 3.4 mEq/L (3.5-5.1); SODIUM 141 mEq/L (136-145)
[2024-03-08 07:08] LABS: CALCIUM 8.5 mg/dL (8.7-10.4)
[2024-03-08 07:11] LABS: CREATININE 0.5 mg/dL (0.6-1.0)
[2024-03-08 07:13] LABS: GLUCOSE 95 mg/dL (70-105); UREA NITROGEN BLOOD 5 mg/dL (9-23)
[2024-03-08 07:15] LABS: PHOSPHORUS 2.1 mg/dL (2.5-4.9)
[2024-03-08] MEDS: POTASSIUM-SODIUM PHOSPHATE POWDER PACKET PO SCH (08:52)
[2024-03-08] MEDS: METRONIDAZOLE 500 MG PREMIX 100 ML IV SCH (16:17)
[2024-03-09] VITALS (10 sets, daily range): BP systolic 120–142; BP diastolic 49–79; PULSE 63–82; RESP 16–20; TEMP 35.78064–37.05852; O2SAT 95–100
[2024-03-09 07:27] LABS: BASOPHILS % 0.2 % (0.0-2.0); CHLORIDE 110 mEq/L (98-107); EOSINOPHILS % 1.6 % (0.0-5.0); HEMATOCRIT. 26.7 % (36.0-48.0); HEMOGLOBIN. 8.7 g/dL (12.0-16.0); LYMPHOCYTES % 20.6 % (20.0-50.0); MEAN CORPUSCULAR HEMOGLOBIN 27.8 pg (28.0-32.0); MEAN CORPUSCULAR HGB CONC 32.8 g/dL (31.0-37.0); MEAN PLATELET VOLUME 9.1 fl (7.4-10.4); MONOCYTES % 7.6 % (2.0-8.0); PLATELET 215 x1000/uL (130-400); POTASSIUM 3.4 mEq/L (3.5-5.1); RED BLOOD CELL COUNT 3.14 mill/uL (4.2-5.4); RED CELL DISTRIBUTION WIDTH 16.4 % (11.6-14.6); SODIUM 141 mEq/L (136-145)
[2024-03-09 07:28] LABS: CALCIUM 8.4 mg/dL (8.7-10.4); CARBON DIOXIDE 24 mEq/L (21-32)
[2024-03-09 07:33] LABS: CREATININE 0.6 mg/dL (0.6-1.0); GLUCOSE 123 mg/dL (70-105); UREA NITROGEN BLOOD 10 mg/dL (9-23)
[2024-03-09 07:35] LABS: PHOSPHORUS 3.2 mg/dL (2.5-4.9)
[2024-03-09] MEDS: POTASSIUM CHLORIDE 20MEQ/PACKET PO NR (09:45)
[2024-03-10] VITALS (9 sets, daily range): BP systolic 128–140; BP diastolic 49–65; PULSE 66–80; RESP 18–24; TEMP 36.22512–37.16964; O2SAT 96–99
[2024-03-10 06:09] LABS: BASOPHILS % 0.3 % (0.0-2.0); EOSINOPHILS % 1.6 % (0.0-5.0); HEMATOCRIT. 29.3 % (36.0-48.0); HEMOGLOBIN. 9.3 g/dL (12.0-16.0); MEAN CORPUSCULAR HEMOGLOBIN 27.2 pg (28.0-32.0); MEAN CORPUSCULAR HGB CONC 31.7 g/dL (31.0-37.0); MEAN CORPUSCULAR VOLUME 85.7 fL (81.0-99.0); MONOCYTES % 8.9 % (2.0-8.0); NEUTROPHILS % 66.2 % (40.0-76.0); PLATELET 237 x1000/uL (130-400); RED BLOOD CELL COUNT 3.42 mill/uL (4.2-5.4); RED CELL DISTRIBUTION WIDTH 17.1 % (11.6-14.6); WHITE BLOOD COUNT 7.5 x1000/uL (4.5-11.0)
[2024-03-10 06:18] LABS: CARBON DIOXIDE 24 mEq/L (21-32); CHLORIDE 112 mEq/L (98-107); POTASSIUM 3.9 mEq/L (3.5-5.1); SODIUM 143 mEq/L (136-145)
[2024-03-10 06:19] LABS: CALCIUM 8.8 mg/dL (8.7-10.4)
[2024-03-10 06:24] LABS: CREATININE 0.5 mg/dL (0.6-1.0); GLUCOSE 118 mg/dL (70-105); UREA NITROGEN BLOOD 8 mg/dL (9-23)
[2024-03-10 06:26] LABS: PHOSPHORUS 3.1 mg/dL (2.5-4.9)
[2024-03-10] MEDS: ACETAMINOPHEN 325MG TABLET PO PRN (10:56)
[2024-03-10] MEDS: METRONIDAZOLE 500MG TABLET PO SCH (15:43)
[2024-03-11] VITALS: BP 129/61; PULSE 73; RESP 20; TEMP 36.50292; O2SAT 97
[2024-03-11 03:54] LABS: BASOPHILS % 0.2 % (0.0-2.0); EOSINOPHILS % 1.6 % (0.0-5.0); HEMATOCRIT. 28.4 % (36.0-48.0); HEMOGLOBIN. 9.3 g/dL (12.0-16.0); LYMPHOCYTES % 20.6 % (20.0-50.0); MEAN CORPUSCULAR HEMOGLOBIN 27.9 pg (28.0-32.0); MEAN CORPUSCULAR HGB CONC 32.7 g/dL (31.0-37.0); MEAN CORPUSCULAR VOLUME 85.4 fL (81.0-99.0); MEAN PLATELET VOLUME 8.5 fl (7.4-10.4); NEUTROPHILS % 67.6 % (40.0-76.0); PLATELET 250 x1000/uL (130-400); RED BLOOD CELL COUNT 3.33 mill/uL (4.2-5.4); RED CELL DISTRIBUTION WIDTH 16.7 % (11.6-14.6); WHITE BLOOD COUNT 6.8 x1000/uL (4.5-11.0)
[2024-03-11 04:00] VITALS: BP 151/49; PULSE 77; RESP 20; TEMP 37.05852; O2SAT 97
[2024-03-11 04:07] LABS: CREATINE KINASE MB FRACTION 1.4 ng/mL (0.5-3.6)
[2024-03-11 04:11] LABS: PROTHROMBIN TIME 11.3 sec (9.6-11.0)
[2024-03-11 04:12] LABS: CHLORIDE 112 mEq/L (98-107); POTASSIUM 3.6 mEq/L (3.5-5.1); SODIUM 141 mEq/L (136-145)
[2024-03-11 04:13] LABS: CARBON DIOXIDE 25 mEq/L (21-32)
[2024-03-11 04:14] LABS: CALCIUM 8.7 mg/dL (8.7-10.4)
[2024-03-11 04:18] LABS: CREATININE 0.4 mg/dL (0.6-1.0); GLUCOSE 108 mg/dL (70-105)
[2024-03-11 04:19] LABS: UREA NITROGEN BLOOD 10 mg/dL (9-23)
[2024-03-11 04:21] LABS: CREATINE KINASE 53 IU/L (34-145)
[2024-03-11 08:00] VITALS: BP 126/54; PULSE 69; RESP 18; TEMP 36.22512; O2SAT 98
[2024-03-11] MEDS ORDERED: PROPOFOL 200MG/20ML VIAL IV ONE (10:19)
[2024-03-11] MEDS ORDERED: MEPERIDINE HCL/PF 25MG/ML CPJ IV PRN (10:30)
[2024-03-11] MEDS ORDERED: ONDANSETRON HCL 4MG/2ML INJ IV PRN (10:30)
[2024-03-11] MEDS ORDERED: HYDROMORPHONE HCL/PF 1MG/ML INJ IV PRN (10:30)
[2024-03-11] MEDS ORDERED: LABETALOL 5MG/ML 4ML INJ IV PRN (10:30)
[2024-03-11] MEDS ORDERED: LIDOCAINE HCL 1% 20ML VIAL ONE (11:17)
[2024-03-11 12:00] VITALS: BP 147/88; PULSE 80; RESP 20; TEMP 36.61404; O2SAT 99
[2024-03-11 12:34] LABS: HEMATOCRIT 28.2 % (36.0-48.0); MEAN CORPUSCULAR HEMOGLOBIN 27.5 pg (28.0-32.0); MEAN CORPUSCULAR VOLUME 86.1 fL (81.0-99.0); PLATELET 260 x1000/uL (130-400); RED BLOOD CELL COUNT 3.28 mill/uL (4.2-5.4); RED CELL DISTRIBUTION WIDTH 17.3 % (11.6-14.6); WHITE BLOOD COUNT 7.5 x1000/uL (4.5-11.0)
[2024-03-11 16:00] VITALS: BP 145/58; PULSE 77; RESP 20; TEMP 36.16956; O2SAT 99
[2024-03-11 20:00] VITALS: BP 154/76; PULSE 71; RESP 18; TEMP 36.89184; O2SAT 97
[2024-03-11] MEDS ORDERED: ATOR10TA69 PO (21:26)
[2024-03-11] MEDS ORDERED: DOCU-150 PO (21:26)
[2024-03-11] MEDS ORDERED: LISI10TA26 PO (21:26)
[2024-03-11] MEDS ORDERED: ASPI-1406 PO (21:26)
[2024-03-12 00:21] VITALS: BP 139/57; PULSE 66; RESP 20; TEMP 36.61404; O2SAT 96
[2024-03-12 04:00] VITALS: BP 132/53; PULSE 60; RESP 20; TEMP 36.83628; O2SAT 98
[2024-03-12] MEDS: METOCLOPRAMIDE HCL 10MG/2ML VIAL IV SCH (05:32)
[2024-03-12 08:00] VITALS: BP 122/54; PULSE 94; RESP 20; TEMP 36.61404; O2SAT 98
[2024-03-12 09:51] LABS: BASOPHILS % 0.8 % (0.0-2.0); EOSINOPHILS % 1.3 % (0.0-5.0); HEMOGLOBIN. 9.2 g/dL (12.0-16.0); LYMPHOCYTES % 21.6 % (20.0-50.0); MEAN CORPUSCULAR HEMOGLOBIN 27.8 pg (28.0-32.0); MEAN CORPUSCULAR HGB CONC 31.8 g/dL (31.0-37.0); MEAN CORPUSCULAR VOLUME 87.5 fL (81.0-99.0); MONOCYTES % 8.9 % (2.0-8.0); NEUTROPHILS % 67.4 % (40.0-76.0); PLATELET 235 x1000/uL (130-400); RED BLOOD CELL COUNT 3.32 mill/uL (4.2-5.4); RED CELL DISTRIBUTION WIDTH 17.7 % (11.6-14.6)
[2024-03-12 10:07] LABS: CHLORIDE 110 mEq/L (98-107); POTASSIUM 3.7 mEq/L (3.5-5.1); SODIUM 139 mEq/L (136-145)
[2024-03-12 10:08] LABS: CALCIUM 8.6 mg/dL (8.7-10.4); CARBON DIOXIDE 25 mEq/L (21-32)
[2024-03-12 10:13] LABS: CREATININE 0.4 mg/dL (0.6-1.0); GLUCOSE 99 mg/dL (70-105)
[2024-03-12 10:14] LABS: UREA NITROGEN BLOOD 7 mg/dL (9-23)
[2024-03-12 12:00] VITALS: BP 133/64; PULSE 97; RESP 18; TEMP 36.44736; O2SAT 94
[2024-03-12 16:00] VITALS: BP 136/52; PULSE 88; RESP 18; TEMP 35.94732; O2SAT 99
[2024-03-12 20:00] VITALS: BP 137/51; PULSE 85; RESP 18; TEMP 36.16956; O2SAT 96
[2024-03-12] MEDS: GUAIFENESIN 200MG/10ML SUGAR FREE UDC PO PRN (20:45)
[2024-03-13 00:09] VITALS: BP 151/56; PULSE 76; RESP 18; TEMP 36.61404; O2SAT 96
[2024-03-13 04:00] VITALS: BP 138/52; PULSE 90; RESP 20; TEMP 37.61412; O2SAT 99
[2024-03-13 08:00] VITALS: BP 118/48; PULSE 83; RESP 18; TEMP 37.2252; O2SAT 94
[2024-03-13 12:00] VITALS: BP 130/49; PULSE 91; RESP 18; TEMP 36.44736; O2SAT 93
[2024-03-13 16:00] VITALS: BP 142/58; PULSE 91; RESP 20; TEMP 36.72516; O2SAT 97
[2024-03-13 20:00] VITALS: BP 125/63; PULSE 87; RESP 18; TEMP 36.61404; O2SAT 95
[2024-03-14] VITALS: BP 132/51; PULSE 94; RESP 18; TEMP 36.78072; O2SAT 96
[2024-03-14 03:54] VITALS: BP 133/62; PULSE 86; RESP 18; TEMP 36.55848; O2SAT 97
[2024-03-14 07:47] VITALS: BP 125/60; PULSE 67; RESP 20; TEMP 36.50292; O2SAT 96
[2024-03-14 12:03] VITALS: BP 139/61; PULSE 85; RESP 18; TEMP 36.78072; O2SAT 94
[2024-03-14 16:24] VITALS: BP 131/77; PULSE 104; RESP 20; TEMP 36.72516; O2SAT 98
[2024-03-14 20:00] VITALS: BP 149/65; PULSE 102; RESP 20; TEMP 37.11408; O2SAT 96
[2024-03-15] VITALS: BP 150/59; PULSE 100; RESP 20; TEMP 36.72516; O2SAT 100
[2024-03-15 04:00] VITALS: BP 139/57; PULSE 84; RESP 19; TEMP 37.2252; O2SAT 98
[2024-03-15 08:00] VITALS: BP 123/54; PULSE 77; RESP 20; TEMP 36.44736; O2SAT 96
[2024-03-15 11:26] VITALS: BP 150/66; PULSE 89; RESP 20; TEMP 36.61404; O2SAT 96
[2024-03-15 16:00] VITALS: BP 160/76; PULSE 89; RESP 18; TEMP 36.28068; O2SAT 98
[2024-03-15 20:00] VITALS: BP 148/66; PULSE 92; RESP 18; TEMP 36.83628; O2SAT 95
[2024-03-16] VITALS: BP 157/66; PULSE 96; RESP 20; TEMP 36.28068; O2SAT 95
[2024-03-16 04:00] VITALS: BP 146/69; PULSE 73; RESP 20; TEMP 36.55848; O2SAT 97
[2024-03-16 08:00] VITALS: BP 163/79; PULSE 79; RESP 18; TEMP 36.61404; O2SAT 100
[2024-03-16 12:00] VITALS: BP 156/71; PULSE 75; RESP 18; TEMP 36.22512; O2SAT 96
[2024-03-16 16:00] VITALS: BP 150/77; PULSE 87; RESP 18; TEMP 36.22512; O2SAT 97
[2024-03-16 20:00] VITALS: BP 115/82; PULSE 69; RESP 18; TEMP 36.55848; O2SAT 95
[2024-03-17] VITALS: BP 161/71; PULSE 91; RESP 18; TEMP 36.28068; O2SAT 96
[2024-03-17 04:00] VITALS: BP 155/59; PULSE 78; RESP 16; TEMP 36.3918; O2SAT 100
[2024-03-17 08:00] VITALS: BP 154/68; PULSE 90; RESP 21; TEMP 36.114; O2SAT 100
[2024-03-17 10:46] VITALS: BP 154/68; PULSE 90; TEMP 97; O2SAT 100
[2024-03-17 12:00] VITALS: BP 134/57; PULSE 83; RESP 21; TEMP 36.22512; O2SAT 99
== END 2024-03-17 12:30 | DRG 871 ==
LOC: ER 08:59 → CVICU 10:50 → EDBEDREQ 11:03 → EDBEDREQTM 11:03 → EDBEDREQSVC 17:44 → 7WST 03-07 23:36 → 6WST 03-15 15:06
PROVIDERS: ADMIT Internal Medicine; ATTEND Internal Medicine
PROC: 0DB78ZX Excision of Stomach, Pylorus, Via Natural or Artificial Opening Endoscopic, Diagnostic (ICD-10-PCS; principal; 2024-03-04)
PROC: 0DH63UZ Insertion of Feeding Device into Stomach, Percutaneous Approach (ICD-10-PCS; 2024-03-04)
PROC: 02HV33Z Insertion of Infusion Device into Superior Vena Cava, Percutaneous Approach (ICD-10-PCS; 2024-03-05)
PROC: B548ZZA Ultrasonography of Superior Vena Cava, Guidance (ICD-10-PCS; 2024-03-05)
DX: A41.9 Sepsis, unspecified organism (principal); G93.41 Metabolic encephalopathy; N17.0 Acute kidney failure with tubular necrosis; R65.21 Severe sepsis with septic shock; J96.01 Acute respiratory failure with hypoxia; J69.0 Pneumonitis due to inhalation of food and vomit; I21.A1 Myocardial infarction type 2; K29.71 Gastritis, unspecified, with bleeding; E87.1 Hypo-osmolality and hyponatremia; J44.0 Chronic obstructive pulmonary disease with (acute) lower respiratory infection; E87.20 Acidosis, unspecified; B18.2 Chronic viral hepatitis C; D64.9 Anemia, unspecified; E11.9 Type 2 diabetes mellitus without complications; E66.9 Obesity, unspecified; E87.6 Hypokalemia; F10.10 Alcohol abuse, uncomplicated; G47.30 Sleep apnea, unspecified; I25.10 Atherosclerotic heart disease of native coronary artery without angina pectoris; B35.1 Tinea unguium; L85.9 Epidermal thickening, unspecified; K52.9 Noninfective gastroenteritis and colitis, unspecified; R13.12 Dysphagia, oropharyngeal phase; Z68.29 Body mass index [BMI] 29.0-29.9, adult; Z22.322 Carrier or suspected carrier of Methicillin resistant Staphylococcus aureus; Z74.01 Bed confinement status; Z78.1 Physical restraint status; Z79.82 Long term (current) use of aspirin; Z88.0 Allergy status to penicillin; Z90.49 Acquired absence of other specified parts of digestive tract; Z93.1 Gastrostomy status; Z95.0 Presence of cardiac pacemaker; Z79.899 Other long term (current) drug therapy
CPT/HCPCS: 36415; 36573; 36600; 71045; 74177; 76700; 80048; 80053; 80061; 80202; 80305; 81003; 82375; 82550; 82553; 82607; 82746; 82805; 82962; 83036; 83540; 83550; 83605; 83735; 83880; 84100; 84145; 84439; 84443; 84484; 85025; 85027; 88305; 88312; 88313; 92610; 93005; 93306; 93970; 94640; 97162; 97530; 99291; C1725; C1769; C1893; J0692; J1650; J1815; J2185; J2470; J2704; J2765; J3370; J3490; J7030; J7070; J7608; Q9967

== ENCOUNTER 2025-03-28 10:02 | Emergency (ER) | payer MEDICARE, MEDICAID ==
[~2025-03-28] VITALS: Ht 157.5 cm; Wt 91.0 kg
[~2025-03-28 10:02] MED LIST changes: -AMLO5TAB88 PO; +ASPI-1406 PO; +ATOR10TA69 PO; +DOCU-422 PO; -LEVO-65 MT; +LISI10TA26 PO; -PANT40TA51 MT; -VICODIN
[2025-03-28 10:14] VITALS: TEMP 36.9; O2SAT 96
[2025-03-28 11:15] VITALS: BP 138/89; PULSE 90; RESP 16; O2SAT 100
== END 2025-03-28 11:16 | disposition home or self-care (01) ==
LOC: ER 10:02
DX: Z43.1 Encounter for attention to gastrostomy (principal); E11.9 Type 2 diabetes mellitus without complications; I10 Essential (primary) hypertension; K21.9 Gastro-esophageal reflux disease without esophagitis; J44.9 Chronic obstructive pulmonary disease, unspecified; D64.9 Anemia, unspecified; I25.2 Old myocardial infarction; Z79.899 Other long term (current) drug therapy; Z98.890 Other specified postprocedural states; Z88.0 Allergy status to penicillin; Z88.1 Allergy status to other antibiotic agents
CPT/HCPCS: 99282